=== PATIENT | male | born 2000 | race Caucasian/White ===

== ENCOUNTER 2022-12-23 10:50 | Outpatient (AMB) | payer BC, SELFPAY ==
--- NOTE | 2022-12-23 12:12 | AM.OFFWIN_ITS ---
Intake Vital Signs 12/23/22 12:14 Height 5 ft 7 in BP 102/60 Blood Pressure Location Lt brachial Position Sitting Pulse 44 L Pulse Source Pulse Oximeter Temp 97.4 F Temp Source Temporal Artery Scan Pulse Oximetry (%) 98 Oxygen Delivery Method Room Air Intake Visit Reasons: EP sports forms ok per Dr.V bailon) Intake Note: Pt is here to have his physical sport forms filled out. Patient Tobacco Use Status: Never used Tobacco Allergies amoxicillin Allergy (Verified 12/31/22 06:05) Unknown Medication List - Last Reconciled 12/31/22 by Killian Holliday MD No Known Home Meds HPI EP sports forms ok per Dr.V bailon) HPI Details 22-year-old male presents to the office requesting a sports physical. He needs a TB test and MMR titer. He is in good health with no medical problems. [facility] Social History Patient Tobacco Use Status: Never used Tobacco Physical Exam Vital Signs: Last Vital Signs Temp 97.4 F 12/23/22 12:14 Pulse 44 L 12/23/22 12:14 BP 102/60 12/23/22 12:14 Pulse Ox 98 12/23/22 12:14 Oxygen Delivery Method Room Air 12/23/22 12:14 Const General: cooperative and healthy appearing Nutritional Appearance: well nourished Orientation/consciousness: patient oriented x3 Limitations: no limitations HEENT Head: Yes normal to inspection Eyes General: appearance normal, both eyes and all related structures Neck Neck: Yes normal visual inspection Chest Chest palpation & inspection: normal palpation of entire chest wall Resp Effort & Inspection: normal respiratory effort Neuro General: patient oriented x3 Assessment & Plan Assessment & Plan (1) School physical exam: Code(s): Z02.0 - Encounter for examination for admission to educational institution Plan: Blood work has been ordered. Will call with the results. Orders: Orders T Spot TB 12/23/22 Z02.0 - Encounter for examination for admission to [facility] Mumps Virus IgG Antibody 12/23/22 Z02.0 - Encounter for examination for admission to educational institution Rubeola IgG (Measles) 12/23/22 Z02.0 - Encounter for examination for admission to educational institution Rubella IgG Antibody 12/23/22 Z02.0 - Encounter for examination for admission to educational institution Coding Level of Care Code Sports/Work/School Physical Diagnoses School physical exam Z02.0
[2022-12-23 12:14] VITALS: BP 102/60; PULSE 44; TEMP 36.3; O2SAT 98
== END 2022-12-23 13:12 | disposition home or self-care (01) ==
PROVIDERS: PCP Pediatrics; Visit Provider Internal Medicine
DX: Z02.0 Encounter for examination for admission to educational institution (principal)
CPT/HCPCS: 99080

== ENCOUNTER 2022-12-23 12:58 | Outpatient (REF) | payer BC, SELFPAY ==
[2022-12-24 21:58] LABS: Mumps Virus IgG Antibody <9.00 AU/mL
[2022-12-24 22:49] LABS: Rubella IgG Antibody <0.90 Index
[2022-12-26 02:08] LABS: TS Negative Control Passed; TS Panel A 0; TS Panel B 0; TS Positive Control Passed; TSpotTB Negative (Negative)
== END 2022-12-23 12:59 | disposition home or self-care (01) ==
LOC: HO.HMGCLDS 12:58
PROVIDERS: PCP Pediatrics; Visit Provider Internal Medicine
DX: Z02.0 Encounter for examination for admission to educational institution (principal)
CPT/HCPCS: 36415; 86481; 86735; 86762; 86765

== ENCOUNTER 2024-11-25 09:44 | Outpatient (AMB) | payer BC, SELFPAY ==
--- NOTE | 2024-11-25 09:52 | AM.OFFWIN_ITS ---
Intake Vital Signs 11/25/24 09:53 Height 5 ft 7 in Weight 141 lb BMI 22.1 BP 112/68 Blood Pressure Location Lt brachial Position Sitting Pulse 56 Pulse Source Pulse Oximeter Temp 98 F Temp Source Oral Pulse Oximetry (%) 99 Oxygen Delivery Method Room Air Intake Visit Reasons: EP ear pain, rt Intake Note: pt presents with RT ear pain for a few days, reports he was swimming recently and also was traveling via airplane Patient Tobacco Use Status: Never used Tobacco Allergies amoxicillin Allergy (Verified 11/25/24 09:56) Unknown Do you need a note to return to daycare/school/sports/work: No HPI HPI Comments History of Present Illness Details History - The patient is a 23-year-old male pres enting with ear pain. - Reports of ear pain, with some pressur e and decrease hearing. - Ear pain is described as shooting and constant. - He has no discharge from the ear. - He was recently in [place] in the past few weeks. - He denies BURGESS, dizziness, sore throat, cough, sinus pain, CP, SOB, abd pain, or n/v/d. Physical Exam General: Cooperative, healthy appearing, comfortable and no acute distress Ears: No tragus tenderness noted. No mastoid tenderness noted. External ears normal and TM normal on the left. TM erythematous and bulging on the right. Nose: Normal external nose present, normal nares present, and no nasal discharge present. Face and sinus: Sinuses nontender to palpation. Mouth: Normal oral and palatal mucosa present and moist mucous membranes noted. Throat: Tonsils normal. Uvula is midline. Posterior oropharynx with erythema and no exudates. Neck: Normal visual inspection, full ROM. No lymphadenopathy noted. Respiratory: Clear to auscultation bilaterally. Normal respiratory effort, able to speak in complete sentences. Cardiovascular: Regular rate and rhythm. Normal S1 and S2 Skin: No rashes or lesions noted Patient was informed and verbally consented to the use of an ambient scribe for clinic note documentation during this visit [facility] Social History Patient Tobacco Use Status: Never used Tobacco Review of Systems Const All systems reviewed & are unremarkable except as noted in HPI and below Physical Exam Vital Signs: Last Vital Signs Temp 98 F 11/25/24 09:53 Pulse 56 11/25/24 09:53 BP 112/68 11/25/24 09:53 Pulse Ox 99 11/25/24 09:53 Oxygen Delivery Method Room Air 11/25/24 09:53 BMI result Body Mass Index 22.1 Assessment & Plan Assessment & Plan (1) Ear pain, right: Code(s): H92.01 - Otalgia, right ear Plan Most likely OM vs cerumen vs effusion Plan - Prescribed oral medication for inner ear infection, avoiding amoxicillin due to allergy. - Tylenol or motrin as needed for pain. - Avoid getting water in the ear. - Medication course to last seven days. - Prescription sent to the patient's pharmacy. Medications: New cefdinir 300 mg PO Q12H 14 caps 0RF 7 days Coding Level of Care Code Est Pt Level 3 (43358) Diagnoses Ear pain, right H92.01
[2024-11-25 09:53] VITALS: BP 112/68; PULSE 56; TEMP 36.6; O2SAT 99; BMI 22.1
--- OUTSIDE RECORDS SUMMARY | 2024-11-25 10:55 | XMS_ITS | Encounter Summary ---
Author Organization [facility] Address [address] [place] [id number] Phone Care Team Providers Care Watcher [place] Name Role Phone Provider, Gaston CORRAL Primary Care Provider [phone] Encounter Details Date Type Department Care Team (Late st Contact Info) Description 01/16/2017 Conversion Encounter [facility] - [address] [address] Social History Tobacco Use Types Packs/Day Years Used Date Smoking Tobacco: Never Comments:Never smoker Sex and Gender Information Value Date Recorded Sex Assigned at Male 03/12/2019 9:23 AM EDT Legal Sex Male 4:53 PM EDT Gender Identity Male 03/12/2019 9:23 AM EDT Sexual Orientation Straight 03/12/2019 9: 23 AM EDT documented as of this encounter Plan of Treatment Not on file documented as of this encounter Visit Diagnoses Not on filedocumented in this encounter Care Teams Watcher [place] Relationship Specialty Start Date End Date Provider, MD [address] [place] [address] PCP - General Pediatrics 10/31/21 01/06/23 documented as of this encounter
== END 2024-11-25 10:51 | disposition home or self-care (01) ==
PROVIDERS: PCP Pediatrics; Visit Provider Physician Assistant Medical
DX: H92.01 Otalgia, right ear (principal)

== ENCOUNTER → 2024-11-25 09:44 | Outpatient (BNVA) | payer BC, SELFPAY | PROVIDERS: PCP Pediatrics; Visit Provider Physician Assistant Medical | DX: Z13.89 Encounter for screening for other disorder (principal) ==